=== PATIENT | male | born 1960 | race Caucasian/White ===

== ENCOUNTER 2019-10-01 18:49 | Outpatient (REF) | payer BC, SELFPAY ==
[2019-10-01 22:38] LABS: Abs Immature Grans 0.01 k/cumm (0.0-0.09); Absolute Basophil Count 0.02 k/cumm (0.0-0.2); Absolute Eosinophil Count 0.24 k/cumm (0.0-0.7); Absolute Lymphocyte Count 1.33 k/cumm (1.2-3.4); Absolute Monocyte Count 0.76 k/cumm (0.11-0.7); Absolute Neutrophil Count 6.22 k/cumm (1.2-6.7); Basophils % 0.2; Eosinophils % 2.8; HCT 46.3 % (40.0-50.0); HGB 15.1 g/dL (13.5-17.5); Immature Grans % 0.1 %; Lymphocytes % 15.5; Mean Corp. HGB Concentration 32.6 g/dL (32.0-36.0); Mean Corpuscular Hemoglobin 29.3 pg (27.0-33.0); Mean Corpuscular Volume 89.9 fL (80-95); Mean Platelet Volume 10.9 fL (8.0-11.0); Monocytes % 8.9; Neutrophils % 72.5; Platelet Count 357 x1000/uL (130-400); RBC 5.15 m/cumm (4.50-6.00); RBC Distribution Width 15.9 % (11.8-14.1); White Blood Cell Count 8.58 k/cumm (4.4-10.8)
[2019-10-01 22:54] LABS: Hemoglobin A1C 5.7 % (3.8-5.6)
[2019-10-01 22:59] LABS: ALT 20 U/L (16-63); AST 15 U/L (15-37); Albumin 3.4 g/dL (3.4-5.0); Alkaline Phosphatase 89 U/L (46-116); Anion Gap 9.8 mmol/L (3-11); BUN 18 mg/dL (7-18); Bilirubin, Total 0.2 mg/dL (0.2-1.0); CO2 24.2 mmol/L (21.0-32.0); CREATININE 1.06 mg/dL (0.70-1.30); Calcium 9.5 mg/dL (8.5-10.1); Calculated LDL 116 mg/dL (<100); Chloride 109 mmol/L (98-107); Cholesterol 184 mg/dL (<200); Glucose 77 mg/dL (74-106); HDL Cholesterol 48 mg/dL (40-60); Potassium 4.3 mmol/L (3.5-5.1); Sodium 143 mmol/L (136-145); TSH (W/Ref FT4) 1.48 uIU/mL (0.36-3.74); Total Protein 6.9 g/dL (6.4-8.2); Triglyceride 104 mg/dL (<150)
== END 2019-10-01 19:09 ==
LOC: NCHCN 18:49
PROVIDERS: PCP Internal Medicine; Visit Provider Nurse Practitioner Family
DX: R53.83 Other fatigue (principal); Z13.220 Encounter for screening for lipoid disorders; E66.9 Obesity, unspecified; Z13.1 Encounter for screening for diabetes mellitus
CPT/HCPCS: 80053; 80061; 83036; 84443; 85025

== ENCOUNTER 2020-02-29 07:41 | Emergency (ER) | payer BC, SELFPAY ==
[2020-02-29 07:51] VITALS: BP 130/85; PULSE 80; RESP 20; TEMP 36.7; O2SAT 97
--- NOTE | 2020-02-29 08:05 | ED.GENADUL_ITS ---
Discharge Plan Disposition Patient Disposition: HOME Condition: Good Discharge Details Clinical Impression: Hip pain Primary Care Provider: Araseli Avelar ED Provider: Tatyana Iniguez Home Meds and New Rx's Prescriptions: Continued ibuprofen 600 mg Tablet 600 mg PO Q6H PRNRF: 0 Discharge Instructions Instructions: Hip Pain (ED) Additional Instructions: May continue to ambulate with crutches as needed. I would like you to begin working with physical therapy as soon as possible, attached to this referral. Please call Sunday to schedule appointment. You may use Tylenol 1000 mg 3 times a day as well as 600 mg ibuprofen up to 4 times a day. Please at least treat your pain prior to bed so you can sleep better. You may try topical options such as Salonpas as well. I have referred you to orthopedics for follow up and reevaluation for your arthritis. Please call Sunday to schedule appointment. If you develop fevers/chills, increased pain, numbness/tingling or other new/worsening symptoms please seek care urgently once again. Stand Alone Forms: Physical Therapy Referral Referrals: Ced Steinberg MD [ [facility] STAFF PHYSICIAN] - Medical Decision Making Patient is a pleasant 59-year-old gentleman presents with chief complaint of right hip pain. He reports that this began 6 weeks ago after he stepped in a small home as he twisted his hip. Indicates the medial side of the hip along the groin line is area of comfort. States the pain has been intermittent, worse with walking. Since the initial injury he has been walking assisted with a crutch. Denies any numbness or tingling. Patient did have surgical intervention on his cervical spine 2 weeks prior to the injury. His neurologist has seen him subsequent to this and did not feel that the issues with the right Is associated with any surgical intervention. States that with ambulation he carries a popping in the medial anterior aspect of the right hip. States that the pain is progressive and increasing. Treatment so in the morning anti- inflammatory which does help but does not does himself again later in the day. On exam, patient is resting comfortably. He appears to be no acute distress. He has some minimal discomfort with palpation over the anteromedial aspect of the hip of the groin. I do not palpate any defect. He has good strength with medial, lateral and anterior/posterior stress testing. However, she has discomfort elicited with full range of motion of the hip again being in most medial aspect. Axial loading of the hip with rotation and to assist with subjective clicking for the patient which is uncomfortable. Plan to discuss x-ray for evaluation of bony pathology. I discussed with the patient that my primary differential time are labral tear versus muscular source of his continued discomfort. Assuming that there is no gross abnormality on the x-ray, I plan to refer him to physical therapy as well as orthopedics. I also discussed more appropriate use of medications with the patient that he is able to have more pain-free day and work on strength in this leg. FINDINGS: Bones/joints: There are [id number] degenerative changes of the bilateral hips. Osteitis pubis. Lower lumbar spondylosis. Degenerative changes of the sacroiliac joints. No acute fracture. Soft tissues: There is a left soft tissue bulge about the left inguinal region which could represent hernia in the proper clinical setting. Vasculature: There are numerous benign phleboliths in the pelvis. IMPRESSION: 1. No acute findings. 2. Osteoarthritis and spondylosis as above. 3. Note that history says left hip pain. 4. There is a left soft tissue bulge about the left inguinal region which could represent hernia in the proper clinical setting. Recommend clinical correlation. The unusual read noted above is because I had initially, accidentally, ordered left hip. Discussed findings with the patient. Advised f/u with orthopedics as well as PT. Patient would like to switch PCP groups, I have asked our child day care provider to reach out to him to discuss further. I encouraged taht he continue to f/u with his PCP currently in the interim. He and I discussed pain management. Encouraged gentle range of motion and strengthening exercises. All of his questions and concerns were addressed, he is in agreement with this plan. HPI General Mode of arrival: ambulatory . Date/Time Provider Initiated Documentation: 02/29/20 07:43 . Limitations to Documentation: no limitations . Information obtained by: patient and RN notes reviewed . History of Present Illness 59 year old M presents to the emergency department with the chief complaint of right hip pain, described as moderate, with intensity rated at 5. Quality is described as other (popping), and is localized to the right and lower extremity. Patient reports no radiation. Patient started experiencing this week(s) (6) and it has been intermittent. Immobilization improves symptom(s), and Medication improves symptom(s), Movement worsens symptoms . Patient notes no other symptoms.. Patient did receive the following treatments prior to arrival, NSAID Related Data Home Medications Medication Instructions Recorded Confirmed ibuprofen 600 mg PO Q6H PRN 02/29/20 02/29/20 Allergies Allergy/AdvReac Type Severity Reaction Status Date / Time No Known Allergies Allergy Unverified 02/29/20 07:55 General Stated Complaint: Orthopedic MICHAEL: 4 Review of Systems Constitutional Constitutional: Reports as per HPI, Denies chills, Denies fever(s), Denies headache(s) and Denies weakness ENT Ears, Nose, Mouth, and Throat: Denies headache(s) Cardiovascular Cardiovascular: Reports as per HPI Respiratory Respiratory: Reports as per HPI and Denies cough Musculoskeletal Musculoskeletal: Reports as per HPI and Denies tingling Integumentary/Breasts Skin/Breast: Reports as per HPI, Denies rash and Denies wounds Neurologic Neurologic: Reports as per HPI, Denies headache(s), Denies tingling, Denies paresthesias and Denies weakness [facility] Social History Smoking/Tobacco Use Status: Current, status unknown Tobacco Type: cigarettes Years smoked: 30 Smoking risk assessment performed?: Yes Alcohol Intake: former Substance use type: does not use Do you feel safe at home: Yes Do you feel safe in your relationship?: Yes Exam Const General: cooperative, healthy appearing, comfortable, no acute distress, well developed and well groomed Nutritional Appearance: well nourished and overweight Orientation: alert and awake Resp Effort & Inspection: normal respiratory effort, able to speak in complete sentences and no respiratory distress Cardio Rate: regular rate Rhythm: regular rhythm Skin General skin exam: no rashes or lesions noted Lesions: no lesions Rashes: no rashes Trauma: no lacerations or abrasions Neuro General: patient alert and patient awake Cognition: normal cognition Speech: speech normal Gait: antalgic and gait assisted (single crutch under left arm) Motor: muscle tone normal throughout, strength 5/5 throughout and no fasciculations Sensory Exam: no sensory deficits noted Extrem Left lower extremity: normal to inspection, full ROM, normal capillary refill, no joint enlargement, hip/thigh Details: normal to inspection, tenderness Location: of the hip Location: anteromedially (inner groin, no palpable defect); not laterally, not anterolaterally, not posteromedially, not posterolaterally, not over the greater trochanter and not over the lesser trochanter, normal ROM and other (with axial loading and rotation, patient feels clicking, no objective pop); no swelling, no abrasions, no lacerations, no ecchymosis, no crepitus and no deformity, knee Details: normal to inspection and normal ROM and foot (2+ distal pulses, normal capillary refill, sensatio intact) Psych Appearance: grossly normal and well kempt Mental Status: mental status grossly normal Speech and Movement: speech and movement normal Course Vital Signs Vital signs: Vital Signs Temperature 36.7 C 02/29/20 07:51 Pulse 80 02/29/20 07:51 Respiratory Rate 20 02/29/20 07:51 Blood Pressure 130/85 02/29/20 07:51 Pulse Oximetry 97 02/29/20 07:51 Temperature 36.7 C 02/29/20 07:51 Pulse 80 02/29/20 07:51 Respiratory Rate 20 02/29/20 07:51 Respiratory Effort Non-Labored 02/29/20 07:54 Blood Pressure 130/85 02/29/20 07:51 Blood Pressure Position Sitting 02/29/20 07:51 Pulse Oximetry 97 02/29/20 07:51 Oxygen Delivery Method Room Air 02/29/20 07:51 Oxygen Flow Rate 0 02/29/20 07:51 Pain Level 5 02/29/20 07:56
--- NOTE | 2020-02-29 08:51 | DI.RAD_ITS ---
EXAM: XR HIP RT COMPLETE AP PELVIS INDICATION: popping in hip, pain in groin x 6wk. COMPARISON: No exams were available for comparison TECHNIQUE: 2D digital imaging was performed. FINDINGS: There is no evidence of fracture or dislocation. The hip joint spaces are well maintained. There is moderate acetabular spurring. There are severe degenerative changes in the lower lumbar spine. SI joints appear intact. On one of the views, there is asymmetric inguinal bulging which on the left wh ich could represent a hernia. Clinical correlation is recommended. IMPRESSION: Question of left inguinal hernia. No acute bony abnormality. Degenerative changes. DATA REPOSITORY: RADIATION DOSE DELIVERED:
--- NOTE | 2020-02-29 09:15 | DI.VRAD_ITS ---
PROCEDURE INFORMATION: Exam: XR Right Hip with Pelvis when Performed Exam date and time: 02/29/2020 8:52 AM Age: 59 years old Clinical indication: Hip pain; Right hip; Patient HX: Pain left hip. Twisting injury 6 weeks ago TECHNIQUE: Imaging protocol: XR Right hip with pelvis when performed. Views: 2 or 3 views. COMPARISON: No relevant prior studies available. FINDINGS: Bones/joints: There are [id number] degenerative changes of the bilateral hips. Osteitis pubis. Lower lumbar spondylosis. Degenerative changes of the sacroiliac joints. No acute fracture. Soft tissues: There is a left soft tissue bulge about the left inguinal region which could represent hernia in the proper clinical setting. Vasculature: There are numerous benign phleboliths in the pelvis. IMPRESSION: 1. No acute findings. 2. Osteoarthritis and spondylosis as above. 3. Note that history says left hip pain. 4. There is a left soft tissue bulge about the left inguinal region which could represent hernia in the proper clinical setting. Recommend clinical correlation. Dictated and Authenticated by: Ge Doss MD. Ordering:JEREMIAS Joe MD
--- NOTE | 2020-02-29 09:28 | NUR.NOTE ---
Referral to Care Management. Patient would like some guidance as to how to go about getting new PCP.Nursing Note:
[2020-02-29] MEDS: Ibuprofen 600 MG TAB PO (09:32)
[2020-02-29] MEDS: Acetaminophen 500 MG TAB PO (09:32)
[2020-02-29 09:33] VITALS: BP 133/81; PULSE 74; RESP 18; TEMP 37; O2SAT 94
== END 2020-02-29 10:38 | disposition home or self-care (01) ==
PROVIDERS: Emergency Provider Physician Assistant; PCP Nurse Practitioner Family
DX: M25.551 Pain in right hip (principal)
CPT/HCPCS: 99283; 73502

== ENCOUNTER 2022-10-08 00:27 | Outpatient (RCR) | payer BC, SELFPAY ==
[2022-09-24] MEDS: Heparin 500 UNITS/5 ML SYRINGE IV (13:57)
[2022-09-24] MEDS: Normal Saline Flush 10 ML SYR IVP (13:57)
[2022-10-08] MEDS: Heparin 500 UNITS/5 ML SYRINGE IV (14:30)
[2022-10-08] MEDS: Normal Saline Flush 10 ML SYR IVP (14:30)
== END 2022-10-20 23:59 | disposition home or self-care (01) ==
LOC: INF 00:27
PROVIDERS: PCP Nurse Practitioner Family; Visit Provider Internal Medicine Hematology & Oncology
DX: Z45.2 Encounter for adjustment and management of vascular access device (principal)
CPT/HCPCS: 36591; 96523

== ENCOUNTER 2022-12-17 00:43 | Outpatient (RCR) | payer BC, SELFPAY ==
[2022-12-03] MEDS: Heparin 500 UNITS/5 ML SYRINGE IV (14:30)
[2022-12-03] MEDS: Normal Saline Flush 10 ML SYR IVP (14:30)
== END 2022-12-21 23:59 | disposition home or self-care (01) ==
LOC: INF 00:43
PROVIDERS: PCP Nurse Practitioner Family; Visit Provider Internal Medicine Hematology & Oncology
DX: Z45.2 Encounter for adjustment and management of vascular access device (principal)
CPT/HCPCS: 96523